=== PATIENT | male | born 1990 | race Caucasian/White ===

== ENCOUNTER 2022-09-15 13:41 | Emergency (ER) | payer OTHER, BC, SELFPAY ==
[2022-09-15 14:21] VITALS: BP 146/93; PULSE 106; RESP 20; TEMP 36.3; O2SAT 97; BMI 26.6
--- NOTE | 2022-09-15 14:30 | CRLHL7_ITS ---
For Patients: As a result of the Cures Act, medical imaging exams and procedure reports are released immediately into your electronic medical record. You may view this report before your referring provider. If you have questions, please contact your health care provider. IMPRESSION: Injury. TECHNIQUE: Right ankle 3 views. COMPARISON: None. FINDINGS: No acute fracture or dislocation. Ankle mortise is symmetric. Soft tissues are unremarkable. IMPRESSION: No acute findings. Dictated by Dariela Watson MD @ 09/15/2022 3:27:07 PM (Electronically Signed)
--- NOTE | 2022-09-15 15:29 | ED_ITS ---
HPI - General Adult General Chief complaint: Extremity Pain/Injury, Lower Stated complaint: Right ankle injury Time Seen by Provider: 09/15/22 15:01 Source: patient Mode of arrival: ambulatory Limitations: no limitations History of Present Illness HPI narrative: 32-year-old male coming in today complaining of right ankle pain. States that he tripped over curb and his ankle rolled. He felt immediate pain and now feels pins and needle sensation over the whole foot. He states that he went to the store and bought himself an ankle brace today and he is able to walk if he is wearing the ankle brace but he is not able to walk is not wearing the ankle brace. Denies any other injury. Related Data Home Medications Medication Instructions Recorded Confirmed No Known Home Medications 09/15/22 09/15/22 Allergies Allergy/AdvReac Type Severity Reaction Status Date / Time No Known Drug Allergies Allergy Verified 09/15/22 14:24 Review of Systems Status of ROS: Reports: 6 or more systems reviewed and unremarkable except as noted in History and below Exam Narrative: Exam Narrative: Well-nourished well-developed patient in no acute distress. Alert and oriented. Answers questions appropriately. Extremities: Bilateral lower extremities are without edema. Normal DP and PT pulses. Right ankle has normal appearance. There is no swelling, erythema or ecchymosis noted. He has mild tenderness medially over the ankle and foot. Remainder of the foot is entirely normal. Skin: Well perfused without any obvious rashes. Const: Vital Signs, click to edit/add: Vital Signs - 24 hr 09/15/22 14:21 Temperature 97.3 F L Pulse Rate [Pulse Oximeter] 106 H Respiratory Rate 20 Blood Pressure [Ri ght Upper Arm] 146/93 H Pulse Oximetry 97 Oxygen Delivery Me thod Room Air Course Course Hospital Course: X-rays were done of the ankle, read by me, do not show any acute pathology. Vital Signs Vital signs: Initial Vital Signs Temperature 97.3 F L 09/15/22 14:21 Temperature Source Temporal Artery Scan 09/15/22 14:21 Pulse Rate 106 H 09/15/22 14:21 Respiratory Rate 20 09/15/22 14:21 Blood Pressure 146/93 H 09/15/22 14:21 Blood Pressure Mean 110 09/15/22 14:21 Blood Pressure Position Sitting 09/15/22 14:21 Pulse Oximetry 97 09/15/22 14:21 Oxygen Delivery Method 09/15/22 14:21 Vital Signs Temperature 97.3 F L 09/15/22 14:21 Pulse Rate 106 H 09/15/22 14:21 Respiratory Rate 20 09/15/22 14:21 Blood Pressure 146/93 H 09/15/22 14:21 Pulse Oximetry 97 09/15/22 14:21 Oxygen Delivery Method 09/15/22 14:21 Temperature 97.3 F L 09/15/22 14:21 Pulse Rate 106 H 09/15/22 14:21 Respiratory Rate 20 09/15/22 14:21 Blood Pressure 146/93 H 09/15/22 14:21 Pulse Oximetry 97 09/15/22 14:21 Oxygen Delivery Method 09/15/22 14:21 Medical Decision Making MDM Narrative Medical decision making narrative: 32-year-old male with ankle sprain. We discussed symptomatic treatment reasons for follow-up. Imaging Data Ankle x-ray: Attestation: I have reviewed the pertinent imaging results. Radiologist's impression: Right ankle 3 views. COMPARISON: None. FINDINGS: No acute fracture or dislocation. Ankle mortise is symmetric. Soft tissues are unremarkable. IMPRESSION: No acute findings. Discharge Plan Discharge Clinical Impression: Ankle sprain and strain Patient Disposition: Home, Self-Care Condition: Stable Additional Instructions: Rest, elevate and ice ankle as needed. Do not apply ice directly to skin. Wear your ankle brace for support. Follow-up with your primary care provider as needed. Prescriptions: No Action No Known Home Medications Follow Up/Referrals: Provider,Not a Local [Primary Care Provider] - Stand Alone Forms: [employer] Info Instructions
[2022-09-15 15:38] VITALS: BP 146/93; PULSE 106; RESP 20; TEMP 36.3
== END 2022-09-15 15:39 | disposition home or self-care (01) ==
PROVIDERS: Emergency Provider Family Medicine
DX: S93.401A Sprain of unspecified ligament of right ankle, initial encounter (principal); X50.1XXA Overexertion from prolonged static or awkward postures, initial encounter
CPT/HCPCS: 73610; 99283; 99284

== ENCOUNTER 2023-04-30 10:47 | Outpatient (CLI) | payer BC, SELFPAY | END 2023-04-30 10:48 | disposition home or self-care (01) | PROVIDERS: PCP Internal Medicine; Visit Provider Internal Medicine | DX: R10.84 Generalized abdominal pain (principal) | CPT/HCPCS: 80053; 80061; 84443 ==